=== PATIENT | male | born 1965 | race Two or more races ===

== ENCOUNTER 2018-01-26 03:06 | Emergency (ER) | payer OTHER ==
[~2018-01-26] VITALS: Ht 165.1 cm; Wt 66.7 kg
[2018-01-26] MEDS ORDERED: TOPROL XL25 M1 (03:28)
[2018-01-26] MEDS ORDERED: TAMS0.4C (03:28)
[2018-01-26] MEDS ORDERED: TEGRETOL XR100 MG (03:29)
[2018-01-26] MEDS ORDERED: PROTONIX40 M1 (03:30)
== END 2018-01-26 10:10 | disposition home or self-care (01) ==
LOC: ER 03:06
DX: S20.212A Contusion of left front wall of thorax, initial encounter (principal); S20.211A Contusion of right front wall of thorax, initial encounter; S00.83XA Contusion of other part of head, initial encounter; V49.9XXA Car occupant (driver) (passenger) injured in unspecified traffic accident, initial encounter; Y93.89 Activity, other specified; Y92.488 Other paved roadways as the place of occurrence of the external cause; Y99.8 Other external cause status